=== PATIENT | male | born 1970 | race Caucasian/White ===

== ENCOUNTER 2019-05-04 09:54 | Outpatient (REF) | payer MEDICAID, SELFPAY ==
[2019-05-04 18:42] LABS: HCT 43.5 % (40.0-50.0); Mean Corp. HGB Concentration 34.5 g/dL (32.0-36.0); Mean Corpuscular Volume 98.6 fL (80-95); Mean Platelet Volume 10.7 fL (8.0-11.0); Platelet Count 218 x1000/uL (130-400); RBC 4.41 m/cumm (4.50-6.00); RBC Distribution Width 13.1 % (11.8-14.1); White Blood Cell Count 5.95 k/cumm (4.4-10.8)
[2019-05-04 18:54] LABS: ALT 51 U/L (12-78); AST 28 U/L (15-37); Albumin 3.5 g/dL (3.4-5.0); Alkaline Phosphatase 81 U/L (46-116); Anion Gap 12.2 mmol/L (3-11); BUN 8 mg/dL (7-18); Bilirubin, Total 0.3 mg/dL (0.2-1.0); CO2 23.8 mmol/L (21.0-32.0); CREATININE 0.95 mg/dL (0.70-1.30); Calcium 8.5 mg/dL (8.5-10.1); Chloride 103 mmol/L (98-107); Glucose 107 mg/dL (70-100); Potassium 3.8 mmol/L (3.5-5.1); Sodium 139 mmol/L (136-145); Total Protein 6.5 g/dL (6.4-8.2)
[2019-05-06 10:48] LABS: HIV-1/2 Ag & Ab Screen Negative (NEGAT)
[2019-05-08 11:53] LABS: Hepatitis C Ab w Rflx HCV PCR Reactive (NEGAT)
== END 2019-05-04 10:14 ==
LOC: NCHCN 09:54
PROVIDERS: PCP Physician Assistant Medical; Visit Provider Physician Assistant Medical
DX: B19.20 Unspecified viral hepatitis C without hepatic coma (principal); Z11.4 Encounter for screening for human immunodeficiency virus [HIV]
CPT/HCPCS: 80053; 85027; 86803; 87389; 87522

== ENCOUNTER 2019-06-09 12:41 | Outpatient (REF) | payer MEDICAID, SELFPAY ==
[2019-06-12 11:26] LABS: Hepatitis B Surface Ag Negative (NEGAT)
[2019-06-12 11:29] LABS: Hep A Total Ab w Rflx IgM Negative (NEGAT); Hep B Core Antibody Negative (NEGAT)
[2019-06-12 11:51] LABS: HBs Antibody, Quant <3.1 mIU/mL; Hepatitis B Surface Ab Negative
[2019-06-13 08:29] LABS: HCV Genotype 1a (Undetected)
== END 2019-06-09 13:01 ==
LOC: NCHCN 12:41
PROVIDERS: PCP Physician Assistant Medical; Visit Provider Family Medicine
DX: B19.20 Unspecified viral hepatitis C without hepatic coma (principal)
CPT/HCPCS: 86704; 86706; 86709; 87340; 87521

== ENCOUNTER 2021-11-17 15:43 | Outpatient (REF) | payer MEDICAID, SELFPAY ==
[2021-11-19 11:38] LABS: COVID-19 RT-PCR UVMMC Result Negative (Negative)
== END 2021-11-17 15:44 | disposition home or self-care (01) ==
LOC: NCHCN 15:43
PROVIDERS: PCP Physician Assistant Medical; Visit Provider Nurse Practitioner Family
DX: Z20.822 Contact with and (suspected) exposure to COVID-19 (principal)
CPT/HCPCS: U0003

== ENCOUNTER 2022-01-06 16:07 | Outpatient (REF) | payer MEDICAID, SELFPAY ==
[2022-01-08 11:27] LABS: Hepatitis C Ab w Rflx HCV PCR Reactive (Negative)
[2022-01-09 12:23] LABS: HCV RNA Qualitative Detected (Undetected)
== END 2022-01-06 16:08 | disposition home or self-care (01) ==
LOC: NCHCN 16:07
PROVIDERS: PCP Physician Assistant Medical; Visit Provider Physician Assistant
DX: B19.20 Unspecified viral hepatitis C without hepatic coma (principal)
CPT/HCPCS: 86803; 87522

== ENCOUNTER 2022-06-24 14:37 | Outpatient (REF) | payer MEDICAID, SELFPAY ==
[2022-06-25 04:46] LABS: Vitamin D 25 Total 31.4 ng/mL (30-100)
== END 2022-06-24 14:38 | disposition home or self-care (01) ==
LOC: NCHCN 14:37
PROVIDERS: PCP Physician Assistant; Visit Provider Physician Assistant
DX: E55.9 Vitamin D deficiency, unspecified (principal)
CPT/HCPCS: 82306

== ENCOUNTER 2024-10-17 12:13 | Outpatient (REF) | payer MEDICAID, SELFPAY ==
[2024-10-17 19:19] LABS: Absolute Basophil Count 0.03 10^3/uL (0.0-0.2); Absolute Lymphocyte Count 1.55 10^3/uL (1.2-3.4); Absolute Monocyte Count 0.52 10^3/uL (0.1-0.8); Absolute Neutrophil Count 2.02 10^3/uL (1.2-6.7); Basophils % 0.7 %; Eosinophils % 2.4 %; HCT 39.7 % (40.0-50.0); HGB 13.8 g/dL (13.5-17.5); Lymphocytes % 36.7 %; MCH 35.7 pg (27.0-33.0); MCHC 34.8 % (32.0-36.0); MCV 103 fL (80-95); MPV 11.1 fL (8.0-11.0); Monocytes % 12.3 %; Neutrophils % 47.9 %; Platelet Count 128 10^3/uL (130-400); RBC 3.87 10^6/uL (4.36-5.78); RDW 11.3 % (11.8-14.1); RDW-SD 43.3 fL; WBC 4.22 10^3/uL (4.4-10.8)
[2024-10-17 19:34] LABS: ALT 170 U/L (16-63); AST 124 U/L (15-37); Albumin 3.4 g/dL (3.4-5.0); Alkaline Phosphatase 112 U/L (46-116); Anion Gap 9.8 mmol/L (3-11); BUN 15 mg/dL (7-18); Bilirubin, Total 0.44 mg/dL (0.2-1.0); CO2 25.2 mmol/L (21.0-32.0); Chloride 105 mmol/L (98-107); Estimated GFR 88.33 (mL/min/1.73m2); Glucose 105 mg/dL (74-106); LDL CHOLESTEROL 92 mg/dL (<100); Potassium 4.5 mmol/L (3.5-5.1); Sodium 140 mmol/L (136-145); Total Protein 7.6 g/dL (6.4-8.2)
[2024-10-19 10:57] LABS: HCV RNA Detection Quantitative 394000 IU/mL (Undetected); HCV RNA Qualitative Detected (Undetected)
== END 2024-10-17 12:14 | disposition home or self-care (01) ==
LOC: NCHCN 12:13
PROVIDERS: PCP Physician Assistant; Visit Provider Physician Assistant
DX: M79.7 Fibromyalgia (principal); Z13.220 Encounter for screening for lipoid disorders
CPT/HCPCS: 80053; 83721; 87522; 85025

== ENCOUNTER 2025-05-08 14:50 | Outpatient (REF) | payer MEDICAID, SELFPAY ==
[2025-05-08 21:36] LABS: Abs Immature Grans 0.01 10^3/uL (0.0-0.06); Absolute Basophil Count 0.03 10^3/uL (0.0-0.2); Absolute Lymphocyte Count 1.82 10^3/uL (1.2-3.4); Absolute Neutrophil Count 2.46 10^3/uL (1.2-6.7); Basophils % 0.6 %; HCT 37.6 % (40.0-50.0); HGB 13.1 g/dL (13.5-17.5); Immature Grans % 0.2 %; MCH 33.7 pg (27.0-33.0); MCHC 34.8 % (32.0-36.0); MCV 97 fL (80-95); MPV 11.1 fL (8.0-11.0); Monocytes % 10.2 %; Platelet Count 147 10^3/uL (130-400); RBC 3.89 10^6/uL (4.36-5.78); RDW 11.9 % (11.8-14.1); RDW-SD 42.7 fL; WBC 4.92 10^3/uL (4.4-10.8)
[2025-05-08 22:06] LABS: Hemoglobin A1C 5.2 % (<5.7)
[2025-05-08 22:21] LABS: ALT 78 U/L (16-63); AST 66 U/L (15-37); Albumin 3.7 g/dL (3.4-5.0); Alkaline Phosphatase 121 U/L (46-116); Anion Gap 6.3 mmol/L (3-11); BUN 13 mg/dL (7-18); Bilirubin, Total 0.7 mg/dL (0.2-1.0); CO2 26.7 mmol/L (21.0-32.0); Calcium 9.2 mg/dL (8.5-10.1); Chloride 101 mmol/L (98-107); Estimated GFR 88.33 (mL/min/1.73m2); Glucose 113 mg/dL (74-106); Potassium 4.2 mmol/L (3.5-5.1); Sodium 134 mmol/L (136-145); TSH (W/Ref FT4) 1.46 uIU/mL (0.36-3.74); Total Protein 7.6 g/dL (6.4-8.2)
[2025-05-09 18:46] LABS: HIV-1/2 Ag & Ab Screen Negative (Negative)
[2025-05-09 19:01] LABS: Hepatitis C Ab w Rflx HCV PCR Reactive (Negative)
[2025-05-10 12:35] LABS: HCV RNA Detection Quantitative 280000 IU/mL (Undetected); HCV RNA Qualitative Detected (Undetected)
== END 2025-05-08 14:51 | disposition home or self-care (01) ==
LOC: NCHCN 14:50
PROVIDERS: PCP Physician Assistant; Visit Provider Physician Assistant
DX: R34 Anuria and oliguria (principal); B19.20 Unspecified viral hepatitis C without hepatic coma; Z11.4 Encounter for screening for human immunodeficiency virus [HIV]
CPT/HCPCS: 80053; 86803; 87389; 87522; 83036; 84154; 84443; 85025

== ENCOUNTER 2025-10-09 12:24 | Outpatient (REF) | payer MEDICAID, SELFPAY ==
[2025-10-09 19:28] LABS: Abs Immature Grans 0.01 10^3/uL (0.0-0.06); HCT 36.3 % (40.0-50.0); HGB 12.6 g/dL (13.5-17.5); Immature Grans % 0.2 %; MCH 35.7 pg (27.0-33.0); MCHC 34.7 % (32.0-36.0); MCV 103 fL (80-95); MPV 10.2 fL (8.0-11.0); Platelet Count 124 10^3/uL (130-400); RBC 3.53 10^6/uL (4.36-5.78); RDW 12.7 % (11.8-14.1); RDW-SD 48.1 fL; WBC 4.33 10^3/uL (4.4-10.8)
[2025-10-09 19:52] LABS: ALT 167 U/L (10-49); AST 179 U/L (<34); Albumin 3.9 g/dL (3.4-5.0); Alkaline Phosphatase 146 U/L (46-116); Anion Gap 6.2 mmol/L (3-11); BUN 16 mg/dL (9-23); Bilirubin, Total 0.40 mg/dL (0.2-1.2); CO2 25.8 mmol/L (20.0-31.0); Calcium 8.6 mg/dL (8.3-10.6); Chloride 105 mmol/L (98-107); Glucose 103 mg/dL (74-106); Potassium 4.2 mmol/L (3.5-5.1); Sodium 137 mmol/L (136-145); Total Protein 7.0 g/dL (5.7-8.2)
== END 2025-10-09 12:25 | disposition home or self-care (01) ==
LOC: NCHCN 12:24
PROVIDERS: PCP Physician Assistant; Visit Provider Physician Assistant
DX: R74.8 Abnormal levels of other serum enzymes (principal)
CPT/HCPCS: 80053; 85025